=== PATIENT | female | born 1975 | race Caucasian/White ===

== ENCOUNTER 2023-05-20 09:55 | Day surgery (SDC) | payer BC, MEDICAID, OTHER ==
[2023-05-20] MEDS: Lactated Ringers 1,000 ML IV SCH (10:12)
[2023-05-20] MEDS ORDERED: fentaNYL 100 MCG/2 ML SDV ONE (10:43)
[2023-05-20] MEDS ORDERED: Midazolam 1 MG/ML 2 ML SDV ONE (10:43)
[2023-05-20] MEDS ORDERED: Propofol 200 MG/20 ML SDV ONE (10:44)
[2023-05-20 12:14] VITALS: BP 128/89; PULSE 79
== END 2023-05-20 12:36 | disposition home or self-care (01) ==
LOC: VM.SDS 09:55
PROVIDERS: ATTEND Family Medicine
DX: D12.6 Benign neoplasm of colon, unspecified (principal); F41.1 Generalized anxiety disorder; R73.03 Prediabetes; Z91.040 Latex allergy status
CPT/HCPCS: 00811; J2250; J2704; J3010; J7120